=== PATIENT | female | born 1945 | race Caucasian/White ===

== ENCOUNTER 2020-02-29 17:53 | Emergency (ER) | payer MEDICARE ==
[~2020-02-29] VITALS: Ht 160 cm; Wt 90.0 kg
--- NOTE | 2020-02-29 18:30 | NUR ---
PT HAS CO FEVER. PT STATES THAT SHE "HAD A TEMP OF 107, WAS TOLD TO COME TO ED". DENIES CP. SOB, COUGH. PT TOOK TYLENOL FEW HOURS AGO. TEMP NOW 100.0. 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
--- NOTE | 2020-02-29 18:49 | NUR ---
REPORT TO ANSELMO
--- NOTE | 2020-02-29 19:05 | NUR ---
Report received from KARL Peralta. This RN to assume care. Patient on rogers stating, "I've been here for three hours." Advised patient it has been an hour and we are doing everything we can. Awaiting orders.
[2020-02-29 19:38] LABS: BASOPHILS # (AUTO) 0.07 x10^3/uL (0-0.1); BASOPHILS % (AUTO) 1 % (0-1); EOSINOPHILS # (AUTO) 0.08 x10^3/uL (0-0.4); EOSINOPHILS % (AUTO) 1 % (1-7); LYMPHOCYTES # (AUTO) 3.16 x10^3/uL (1-3.4); LYMPHOCYTES % (AUTO) 21 % (22-44); MD NO; MEAN CORPUSCULAR HEMOGLOBIN 30.3 pg (27.0-34.8); MEAN CORPUSCULAR HGB CONC 33.7 g/dL (32.4-35.8); MEAN CORPUSCULAR VOLUME 89.9 fL (80-100); MEAN PLATELET VOLUME 7.8 fL (7.4-10.4); MONOCYTES # (AUTO) 1.17 x10^3/uL (0.2-0.8); MONOCYTES % (AUTO) 8 % (2-9); NEUTROPHILS # (AUTO) 10.68 x10^3/uL (1.8-6.8); NEUTROPHILS % (AUTO) 70 % (42-75); PLATELET COUNT 482 x10^3/uL (130-400); RED BLOOD COUNT 4.83 x10^6/uL (3.82-5.3)
[2020-02-29 19:43] LABS: ALBUMIN 3.7 g/dL (3.4-5.0); ANION GAP 9 mmol/L (5-15); CALCIUM 9.7 mg/dL (8.5-10.1); CHLORIDE 105 mmol/L (98-107)
[2020-02-29 19:48] LABS: ALANINE AMINOTRANSFERASE 25 U/L (12-78); ALKALINE PHOSPHATASE 164 U/L (45-117); BILIRUBIN,TOTAL 0.4 mg/dL (0.2-1.0); CREATININE 1.09 mg/dL (0.55-1.02); TOTAL PROTEIN 8.8 g/dL (6.4-8.2)
[2020-02-29 19:49] VITALS: BP 136/79
--- NOTE | 2020-02-29 19:54 | NUR ---
Patient provided urine sample however lab states it is not enough to run. Advised ERP.
[2020-02-29 20:03] LABS: MICROSCOPIC INDICATED
--- NOTE | 2020-02-29 21:05 | NUR ---
Discharge instructions given. All questions and concerns addressed. Patient ambulatory with a steady gait. Belongings with patient.
== END 2020-02-29 21:07 | disposition home or self-care (01) ==
LOC: ED 20:40
DX: A41.9 Sepsis, unspecified organism (principal); Z20.828 Contact with and (suspected) exposure to other viral communicable diseases; R50.9 Fever, unspecified; R94.31 Abnormal electrocardiogram [ECG] [EKG]; I10 Essential (primary) hypertension; E03.9 Hypothyroidism, unspecified
CPT/HCPCS: 36415; 71045; 80053; 81001; 83605; 84145; 85025; 87040; 93005; 99285; U0001